=== PATIENT | female | born 1960 | race Caucasian/White ===

== ENCOUNTER 2019-01-29 15:52 | Emergency (ER) | payer BC ==
--- NOTE | 2019-01-29 16:28 | EDPHY ---
H & P Stated Complaint: pt reports falling backwards down basement stairs, 6 steps. pt denies LOC. Time Seen by Provider: 01/29/19 15:58 HPI/ROS: Chief Complaint: Fall, back pain HPI: 58-year-old woman had a mechanical fall yesterday evening. Patient was going down the stairs when she lost her footing at the landing. She fell forward, grabbed the rail to the right and was flipped around. Patient ended up landing on the lower segment of stairs on her back with her head facing down and proceeded this lie down the remainder 3-4 stairs. She did not hit her head. No loss of consciousness. She has initially had some mild pain and some abrasions and bruising. Pain was worse this morning. She is complaining of pain intermittent right back and her lower back. Does have pain with deep inspiration. No new numbness or weakness. She has been ambulating without any difficulty. She did take some Advil with minimal relief. No abdominal pain. No nausea or vomiting. No fevers or chills. No headache. No vision changes. ROS: 10 systems were reviewed and were negative except those elements noted in the HPI. PMH: Neck cancer Social History: No smoking, no alcohol, no recreational drug use Family History: non-contributory Physical Exam: Gen: Awake, Alert, Airway Intact HEENT: Head: Atraumatic Eyes: PERRLA, EOMI Nose: No epistaxis Mouth: Normal dentition, Airway patent Face: No deformity Neck: non-tender, no stepoff, Full ROM without pain Chest: non-tender, lungs CTA Heart: normal heart tones Abd: soft, non-tender, atraumatic Pelvis: non-tender, stable to AP and Lateral compression Back: atraumatic, patient has abrasions bilateral paraspinal regions on her midthoracic. There is also small abrasion just above her sacrum. Says mild midline tenderness in the thoracic spine middle region and lower lumbar spine. There is an abrasion on her right posterior chest wall below her scapula. There is some tenderness. There is no deformity. There is no flail segment. Ext: atramatic, full ROM Skin: no rash Neuro: CN II-XII intact, Strength 5/5 in all extremities, sensation intact in all extremities - Personal History Current Tetanus/Diphtheria Vaccine: Yes Current Tetanus Diphtheria and Acellular Pertussis (TDAP): Yes Tetanus Vaccine Date: 2017 - Medical/Surgical History Other PMH: MEd hx-ADHD,insomnia,benign tumors. , tumor removals. - Social History Smoking Status: Former smoker Constitutional: Initial Vital Signs Temperature (C) 37 C 01/29/19 16:04 Heart Rate 100 01/29/19 16:04 Respiratory Rate 14 01/29/19 16:04 Blood Pressure 172/91 H 01/29/19 16:04 O2 Sat (%) 98 01/29/19 16:04 O2 Delivery Mode Room Air Allergies/Adverse Reactions: No Known Allergies Allergy (Unverified 01/29/19 16:03) Home Medications: Medication Instructions Recorded Adderall 10 mg Tablet 01/29/19 Hydrocodone/Acetaminophen 1 - 2 each PO Q4-6PRN PRN #10 01/29/19 [Hydrocodon-Acetaminophen 5-325] tablet traZODone 01/29/19 Medical Decision Making - Diagnostics Imaging Results: Imaging Impressions Chest X-Ray 01/29/19 16:19 Impression: 1. 2 indeterminate age, mild thoracic compressions greatest at T7. Correlation with the site of symptoms is recommended. 2. Chronic mild interstitial changes. Lumbar Spine X-Ray 01/29/19 16:19 Impression: 1. No acute osseous abnormality seen about the lumbar spine. 2. Moderate disk space narrowing with marginal osteophytes at L5-S1. Thoracic Spine X-Ray 01/29/19 16:19 Impression: 1. Mild anterior wedging of T7 and minimally at T8 involving superior endplate. This could represent sequela from recent trauma. 2. Mild compression superior central endplate of T5 and T6 probably from Schmorl 's nodes. ED Course/Re-evaluation: X-rays noted. Patient has stable anterior compression fractures. She is ambulating without difficulty. Will discharge with oral analgesia and referral to orthopedic follow-up. Departure - Departure Disposition: Home, Routine, Self-Care Clinical Impression: Thoracic spine fracture Condition: Fair Instructions: Thoracolumbar Fracture (ED) Additional Instructions: You of 1-2 very mild stable compression fractures of the thoracic spine of indeterminate age. These might be related to recent trauma. Follow up with orthopedic surgeon in 3-4 days for further evaluation. Referrals: Andreas Law MD [Medical Doctor] - As per Instructions Prescriptions: Hydrocodone/Acetaminophen [Hydrocodon-Acetaminophen 5-325] 1 - 2 each PO Q4- 6PRN PRN #10 tablet PRN Reason: Pain, Severe
[2019-01-29 17:32] VITALS: BP 132/88
== END 2019-01-29 17:00 | disposition home or self-care (01) ==
LOC: CED 15:52
DX: M48.54XA Collapsed vertebra, not elsewhere classified, thoracic region, initial encounter for fracture (principal); W10.9XXA Fall (on) (from) unspecified stairs and steps, initial encounter
CPT/HCPCS: 71046-PO; 72070-PO; 72100-PO; 99284-ER